=== PATIENT | female | born 2000 | race Two or more races ===

== ENCOUNTER 2021-01-15 13:01 | Outpatient (CLI) | payer SELFPAY ==
[2021-01-15 20:27] LABS: BASOPHILS # (AUTO) 0.1 10^3/uL (0.0-0.1); BASOPHILS % (AUTO) 0.7 %; EOSINOPHILS # (AUTO) 0.1 10^3/uL (0.0-0.7); EOSINOPHILS % (AUTO) 1.9 %; HGB - HEMOGLOBIN 12.2 g/dL (12.0-16.0); LYMPHOCYTES % (AUTO) 26.9 %; MEAN CORPUSCULAR HEMOGLOBIN 25.5 pg (27.0-31.0); MEAN CORPUSCULAR HGB CONC 30.5 g/dL (32.0-36.0); MEAN CORPUSCULAR VOLUME 83.5 fL (81.0-99.0); MEAN PLATELET VOLUME 9.6 fL (7.9-10.8); MONOCYTES # (AUTO) 0.5 10^3/uL (0.0-1.0); MONOCYTES % (AUTO) 6.4 %; NEUTROPHILS # (AUTO) 4.8 10^3/uL (1.5-6.6); NEUTROPHILS % (AUTO) 63.7 %; PLT - PLATELET COUNT 504 10^3/uL (130-450); RED BLOOD COUNT 4.79 10^6/uL (4.20-5.40); RED CELL DISTRIBUTION WIDTH 17.2 % (12.0-15.0); WHITE BLOOD COUNT 7.5 x10^3/uL (4.8-10.8)
[2021-01-15 20:43] LABS: CALCIUM 9.2 mg/dL (8.5-10.3); CREATININE 0.5 mg/dL (0.4-1.0); CRP - C-REACTIVE PROTEIN 1.7 mg/dL (0-1.0); POTASSIUM 4.1 mmol/L (3.5-5.0)
== END 2021-01-15 13:02 | disposition home or self-care (01) ==
LOC: LAB.S 13:01
PROVIDERS: ATTEND Neurological Surgery
DX: Z98.1 Arthrodesis status (principal)
CPT/HCPCS: 36415; 80048; 85025; 85651; 86140

== ENCOUNTER 2021-02-03 14:25 | Outpatient (CLI) | payer SELFPAY ==
--- NOTE | 2021-02-03 15:52 | XRAY Report ---
PROCEDURE: Lumbar Spine w/Flex/Ext INDICATIONS: S/P LUMBAR FUSION TECHNIQUE: 4 views of the lumbar spine acquired. COMPARISON: None. FINDINGS: Bones: 5 [id number]-[id number] vertebrae are present. Patient is status post posterior fusion at T10-L2 le vels mild superior endplate anterior wedge compression deformity is noted at T12 level. There is norm al bony alignment. No vertebral body compression fractures. No gross hardware loosening or failure. No suspicious bony lesions. Soft tissues: Overlying bowel gas pattern is normal. No suspicious soft tissue calcifications. Flexion/extension: There is normal range of motion, with preserved lumbar spine alignment. IMPRESSION: Post fusion changes at T10-L2 levels with subacute to chronic-appearing anterior wedge c ompression deformity at T12 level. No acute compression fracture. No gross hardware complication. Nor mal lumbar spine alignment. Normal range of motion. Reviewed by: Luis Cote MD on 02/03/2021 3:51 PM PDT Approved by: Luis Cote MD on 02/03/2021 3:51 PM PDT Station ID: [id number]
== END 2021-02-03 14:26 | disposition home or self-care (01) ==
LOC: EDSEX → DI 14:25
PROVIDERS: ATTEND Neurological Surgery
DX: M48.54XA Collapsed vertebra, not elsewhere classified, thoracic region, initial encounter for fracture (principal); Z98.1 Arthrodesis status